=== PATIENT | male | born 1955 | race Caucasian/White ===

== ENCOUNTER 2018-04-13 16:36 | Emergency (ER) | payer OTHER ==
[~2018-04-13] VITALS: Ht 177.8 cm; Wt 90.7 kg
[2018-04-13 16:40] VITALS: BP_SYST 98
[2018-04-13] MEDS ORDERED: cefTRIAXone 1 GM IVPB PREMIX 50 ML IV ONE (17:00)
[2018-04-13] MEDS ORDERED: NS 1000 ML IV.SOLN IV ONE (17:00)
[2018-04-13 17:28] LABS: BASOPHILS # (AUTO) 0.1 K/uL (0.0-0.2); BASOPHILS % (AUTO) 0.5 % (0.0-2.0); CALCIUM 8.9 mg/dL (8.4-11.0); CREATININE 1.12 mg/dL (0.55-1.30); HEMATOCRIT 44.5 % (36-54); HEMOGLOBIN 14.8 g/dL (14.0-18.0); LYMPHOCYTES # (AUTO) 1.9 K/uL (1.0-5.5); LYMPHOCYTES % (AUTO) 13.7 % (20.5-51.5); MEAN CORPUSCULAR HEMOGLOBIN 29 pg (27-31); MEAN CORPUSCULAR HGB CONC 33 % (32-36); MEAN CORPUSCULAR VOLUME 89 fL (79.0-98.0); MONOCYTES # (AUTO) 0.4 K/uL (0.0-1.0); MONOCYTES % (AUTO) 2.6 % (1.7-9.3); NEUTROPHILS # (AUTO) 11.7 K/uL (1.8-7.7); NEUTROPHILS % (AUTO) 83.2 % (40.0-70.0); PLATELET COUNT (AUTO) 265 K/uL (130-430); POTASSIUM 3.7 mmol/L (3.5-5.1); RED BLOOD CELL COUNT(AUTO) 5.02 MIL/uL (4.2-6.2); RED CELL DISTRIBUTION WIDTH 12.3 % (9.0-15.0); WHITE BLOOD COUNT (AUTO) 14.1 K/uL (4.8-10.8)
[2018-04-13 17:33] LABS: ALBUMIN 3.6 g/dL (3.4-4.8); TOTAL BILIRUBIN 0.7 mg/dL (0.0-1.0)
[2018-04-13] MEDS ORDERED: ASA81 PO (19:40)
[2018-04-13] MEDS ORDERED: ATEN-41 PO (19:40)
[2018-04-13] MEDS ORDERED: LIP40 PO (19:40)
[2018-04-13] MEDS ORDERED: LISI-209 PO (19:40)
[2018-04-13] MEDS ORDERED: VANCOMYCIN HCL 1,000 MG in NS 250 ML IV ONE (19:45)
[2018-04-13] MEDS ORDERED: NACL 0.9% 1,000 ML IV ONE (19:45)
[2018-04-13] MEDS ORDERED: VANCOMYCIN HCL 1000 MG/VIAL IV ONE (19:53)
[2018-04-13 21:14] VITALS: BP_SYST 111
== END 2018-04-13 21:14 | disposition short-term general hospital (02) ==
LOC: SED 16:36
DX: L03.116 Cellulitis of left lower limb (principal); I95.9 Hypotension, unspecified; A41.9 Sepsis, unspecified organism; F17.210 Nicotine dependence, cigarettes, uncomplicated; Z86.79 Personal history of other diseases of the circulatory system
CPT/HCPCS: 36415; 73590; 80053; 83605; 84484; 85025; 87040; 93005; 93971; 96365; 96366; 96367; 99285; J0696; J3370; J7030